=== PATIENT | female | born 1990 | race Caucasian/White ===

== ENCOUNTER 2019-04-16 16:28 | Outpatient (CLI) | payer OTHER, SELFPAY ==
--- NOTE | ~2019-04-16 | US_ITS ---
EXAMINATION: US thyroid DATE: 04/16/2019 17:01 INDICATION: Nontoxic single thyroid nodule. TECHNIQUE: Multiple ultrasound images of the thyroid were obtained. COMPARISON: 05/07/2018 FINDINGS: The right thyroid lobe measures 6.0 x 1.7 x 1.5 cm. The left thyroid lobe measures 4.8 x 1.4 x 1.8 c m. The thyroid isthmus measures 4-5 mm in thickness. Thyroid demonstrates heterogeneous echogenicity with coarsened echotexture. The prior hypervascularity appears to have resolved. Slight increase in size of a now 1.6 x 1.1 x 1.2 cm solid wider than tall hypoechoic solid nodule with central coarse sh adowing calcification at the mid left thyroid (TI-RADS 4, moderately suspicious, FNA if >=1.5 cm, renay ual followup is >1 cm). IMPRESSION: 1. Slight interval increase in size of a now 1.6 cm TI-RADS 4 left thyroid nodule which now meet crit eria for ultrasound-guided biopsy which would be recommended. Reviewed, dictated and finalized at location A. NG INSPECTOR IMPRESSION: 1. Slight interval increase in size of a now 1.6 cm TI-RADS 4 left thyroid nodu le which now meet criteria for ultrasound-guided biopsy which would be recommen ded.
== END 2019-04-16 16:29 | disposition home or self-care (01) ==
LOC: ANHIMG 16:31
PROVIDERS: PCP Nurse Practitioner Adult Health; Visit Provider Internal Medicine Endocrinology, Diabetes & Metabolism
DX: E04.1 Nontoxic single thyroid nodule (principal)
CPT/HCPCS: 76536

== ENCOUNTER 2019-09-02 13:07 | Outpatient (CLI) | payer OTHER, SELFPAY ==
--- NOTE | ~2019-09-02 | US_ITS ---
EXAMINATION: US FNA w image guidance DATE: 09/02/2019 14:12 INDICATION: Left thyroid nodule TECHNIQUE: A time-out was performed to verify the patient's name, date of , and procedure to be performed . The procedure and its benefits and risks were discussed with the patient. Risks specifically discus sed included bleeding and infection. The patient understood the risks and agreed to proceed. The neck was prepped and draped in the usual sterile manner. 3 mL 1% lidocaine was used for local anesthesia . 6 passes were made with a 25G needle into the lesion. Appropriate needle location was documented with continuous sonographic guidance. The specimens were passed to the dairy manufacturing technologist in the room. A sterile bandage was applied. There were no immediate complications. FINDINGS: Grayscale ultrasound images demonstrate biopsy needles advanced into a 1.3 cm solid TI-RADS 4 left th yroid nodule. IMPRESSION: 1. Successful ultrasound-guided fine needle aspiration of a 1.3 cm solid TI-RADS 4 left thyroid nodu le. Reviewed, dictated and finalized at location A. IMPRESSION: 1. Successful ultrasound-guided fine needle aspiration of a 1.3 cm solid TI-RA DS 4 left thyroid nodule.
== END 2019-09-02 13:08 | disposition home or self-care (01) ==
PROVIDERS: PCP Nurse Practitioner Adult Health; Visit Provider Internal Medicine Endocrinology, Diabetes & Metabolism
DX: E04.1 Nontoxic single thyroid nodule (principal)
CPT/HCPCS: 10005; 88173; 88305

== ENCOUNTER 2020-08-05 16:32 | Outpatient (CLI) | payer OTHER, SELFPAY ==
--- NOTE | ~2020-08-05 | US_ITS ---
EXAMINATION: US thyroid EXAM DATE: 08/05/2020 17:07 INDICATION: Thyroid nodule follow-up. TECHNIQUE: Multiple grayscale and Doppler images of the thyroid were obtained (by a technologist who performed the scan) and subsequently reviewed. Individual nodules and recommendations may be reporte d in accordance with TI-RADS system as designated by the 2017 ACR White Paper TI-RADS committee. Comp yolanda is made to prior examination from 04/16/2019. FINDINGS: The right thyroid lobe measures 5.0 x 1.8 x 1.7 cm, the left measuring 4.7 x 1.4 x 1.7 cm. Mildly het erogeneous thyroid echogenicity with diffusely hypervascular parenchyma. Again there is a nodule in the deep aspect midpole left thyroid lobe measuring 1.6 x 0.6 x 1.1 cm, so lid (2 points), hypoechoic (2 points), wider than tall, lobulated margin (2 points), containing scatt ered echogenic foci probably along posterior richter of cystic components, category TR4 for this nodule . This was previously biopsied reportedly with benign results. No other suspicious nodules. IMPRESSION: Left thyroid lobe previously biopsied nodule unchanged. If follow-up obtained, consider l onger interval, 2 year follow-up. Reviewed, dictated and finalized at location G. IMPRESSION: Left thyroid lobe previously biopsied nodule unchanged. If follow-u p obtained, consider longer interval, 2 year follow-up.
== END 2020-08-05 16:33 | disposition home or self-care (01) ==
PROVIDERS: PCP Nurse Practitioner Adult Health; Visit Provider Internal Medicine Endocrinology, Diabetes & Metabolism
DX: E04.1 Nontoxic single thyroid nodule (principal)
CPT/HCPCS: 76536